=== PATIENT | female | born 1985 | race Caucasian/White ===

== ENCOUNTER 2017-08-10 15:58 | Emergency (ER) | payer OTHER ==
[~2017-08-10] VITALS: Ht 160 cm; Wt 72.6 kg
[2017-08-10] MEDS ORDERED: ONDANSETRON ODT 4 MG TAB.RAPDIS SL ONE (16:45)
[2017-08-10] MEDS ORDERED: HYDROCODONE/APAP 10-325 MG TABLET PO ONE (16:45)
[2017-08-10] MEDS ORDERED: ONDANSETRON ODT 4 MG TAB.RAPDIS ONE (16:57)
[2017-08-10] MEDS ORDERED: HYDROCODONE/APAP 10-325 MG TABLET ONE (16:57)
--- NOTE | 2017-08-10 18:28 | NUR ---
Patient discharged to home in stable conditon. Written and verbal after care instructions given. Patient verbalizes understanding of instructions.COPY OF CT GIVEN. PT WITH FAMILY MEMBERS. PT SAYS FEELS BETTER, WALKS IN STEADY GAIT.
[2017-08-10 18:29] VITALS: BP 131/79
== END 2017-08-10 18:29 | disposition home or self-care (01) ==
LOC: ER 15:59
DX: S06.0X0A Concussion without loss of consciousness, initial encounter (principal); E11.9 Type 2 diabetes mellitus without complications; Z79.4 Long term (current) use of insulin; V43.62XA Car passenger injured in collision with other type car in traffic accident, initial encounter; Y93.89 Activity, other specified; Y92.410 Unspecified street and highway as the place of occurrence of the external cause; Y99.8 Other external cause status
CPT/HCPCS: 70450; 70486; 72125; A4663; Q0162

== ENCOUNTER 2018-11-16 14:54 | Emergency (ER) | payer OTHER ==
[~2018-11-16] VITALS: Ht 160 cm; Wt 68.0 kg
[2018-11-16] MEDS ORDERED: LORAZEPAM 2 MG/1 ML VIAL ONE (15:00)
[2018-11-16] MEDS ORDERED: LORAZEPAM 2 MG/1 ML VIAL IM ONE (15:00)
--- NOTE | 2018-11-16 15:00 | NUR ---
Dr Rdz at the bedside for MSE. Pt is unwilling to answer questions and refused to follow directions to slow down breathing.
--- NOTE | 2018-11-16 15:51 | NUR ---
Patient discharged to home in stable conditon. Written and verbal after care instructions given. Patient verbalizes understanding of instructions. All belongings sent with patient
[2018-11-16 15:53] VITALS: BP 138/83
== END 2018-11-16 15:55 | disposition home or self-care (01) ==
LOC: ER 14:54
DX: F41.0 Panic disorder [episodic paroxysmal anxiety] (principal); E11.9 Type 2 diabetes mellitus without complications; R06.4 Hyperventilation
CPT/HCPCS: 96372; 99284; J2060; A4663